=== PATIENT | male | born 1980 | race Caucasian/White ===

== ENCOUNTER → 2023-07-02 12:36 | Outpatient (CLI) | payer OTHER, SELFPAY ==
--- NOTE | 2023-07-02 | DI.MRI.S_ITS ---
PROCEDURE: MR SHOULDER LT W CON INDICATIONS: SHOULDER PAIN TECHNIQUE: After the administration of 12 mL of dilute intra-articular Gadolinium contrast, oblique coronal T1 and T2 spin echo with fat saturation, oblique sagittal T1 spin echo with and without fat saturation, oblique sagittal T2 fast spin echo with fat saturation, axial T1 spin echo with fat saturation through the shoulder. COMPARISON: None. FINDINGS: Image quality: Excellent. Rotator cuff: Low to moderate grade articular and bursal surface partial thickness tear involving distal supraspinatus at its insertion on the humeral head is seen extending to musculotendinous junction. Low-grade articular surface partial-thickness tear involving distal infraspinatus at its insertion on the humeral head. Low-grade intrasubstance partial-thickness tear involving subscapularis is seen. No full-thickness rotator cuff tendon rupture. Mild supraspinatus muscle atrophy is seen on sagittal images. Bones and bursae: No bone marrow contusions or fractures. Ixzz-ec-[id number] acromioclavicular joint osteoarthritic changes are seen with joint space narrowing and small downward osteophyte formation depressing the musculotendinous junction of supraspinatus. The acromion demonstrates conventional anatomy, without an os acromiale. Capsule and soft tissues: There is fraying of posterior superior labrum with T2 hyperintense signal and contrast extension at 11 to 12 o'clock position suggestive of subtle posterior superior labral tear. The glenohumeral ligaments appear intact. The long head of the biceps tendon demonstrates normal location and morphology. The rotator interval appears normal, without fibrosis. The coracohumeral ligament is of normal thickness. No intra-articular bodies. IMPRESSION: 1. Low to moderate grade articular and bursal surface partial thickness tear involving distal supraspinatus extending to musculotendinous junction. Low-grade articular surface partial-thickness tear involving distal infraspinatus. Low-grade intrasubstance partial-thickness tear involving subscapularis. No full-thickness rotator cuff tendon rupture. Mild supraspinatus muscle atrophy. 2. [id number] acromioclavicular joint osteoarthritis. No marrow edema. No fracture or dislocation. No gross intra-articular loose bodies. 3. Finding is concerning for subtle posterior superior labral tear at 11 to 12 o'clock position. Dictated by: Raulito Nicholas M.D. on 07/02/2023 at 16:28 Approved by: Raulito Nicholas M.D. on 07/02/2023 at 16:31
--- NOTE | 2023-07-02 | DI.RAD.S_ITS ---
PROCEDURE: FL SHOULDER INJECTION MR/CT LT INDICATIONS: SHOULDER PAIN COMPARISON: None. TECHNIQUE: The indications, alternatives, benefits, risks, and complications of the procedure were explained to the patient. Written informed consent was obtained and placed in the chart. The shoulder was examined fluoroscopically and a site for needle placement chosen for entry into the glenohumeral joint from an anterior approach. The skin was prepped and draped in a sterile fashion, and 1% lidocaine infiltrated from skin down to joint capsule. A spinal needle was inserted into the glenohumeral joint, and a small amount of iodinated contrast media injected to confirm intra-articular placement of the needle tip. This was followed by approximately 12 mL dilute solution of a gadolinium containing MR contrast agent. The needle was removed and a dressing was applied. The patient was given postprocedural instructions and sent to the MR suite for MR imaging. FINDINGS: A single fluoroscopic spot image demonstrates intra-articular location of injected iodinated contrast. IMPRESSION: Successful fluoroscopically guided administration of dilute Gadolinium solution into the shoulder joint for MR arthrogram. Dictated by: Messi Sherman M.D. on 07/05/2023 at 12:32 Approved by: Messi Sherman M.D. on 07/05/2023 at 12:32
[2023-07-02] MEDS: LIDOCAINE 1% 20 ML INJ (13:53)
[2023-07-02] MEDS: SODIUM CHLORIDE 0.9 % 20 ML VIAL IV (13:54)
== END ==
LOC: RAD 12:38
DX: M75.112 Incomplete rotator cuff tear or rupture of left shoulder, not specified as traumatic (principal); M19.012 Primary osteoarthritis, left shoulder; M25.519 Pain in unspecified shoulder
CPT/HCPCS: 23350; 73222

== ENCOUNTER → 2024-05-15 10:48 | Outpatient (CLI) | payer OTHER, SELFPAY ==
--- NOTE | 2024-05-15 | DI.MRI.S_ITS ---
PROCEDURE: MR ANKLE LT W CON INDICATIONS: MULTIPLE OSSEOUS INTRA-ARTICULAR BODIES TECHNIQUE: After the administration of 5 mL of dilute intra-articular Gadolinium contrast into the tibiotalar joint, sagittal T1 spin echo with and without fat saturation, axial T1 fast spin echo with fat saturation and T2 fast spin echo with fat saturation, coronal T1 spin echo and T2 fast spin echo with fat saturation through the ankle. COMPARISON: [facility], [place], [place] ANKLE INJECTION MR/CT LT, 05/15/2024, 11:27. [facility] Outside Film, CR, XR ANKLE 3+ VIEWS LEFT, 05/05/2024, 10:01. FINDINGS: Image quality: Excellent Tendons: Marked tenosynovitis of the posterior tibialis, at the level of the tibial plafond and. Mild tenosynovitis of the flexor digitorum longus. Marked tenosynovitis of the flexor hallucis longus, at the level of the distal tibia, and at the master knot of Reji. The extensor tendons, are unremarkable. Mild tenosynovitis of the peroneal longus, without tear. Mild tendinosis of the distal Achilles tendon, without tear. Ligaments: The anterior and the posterior tibiofibular ligament are intact. Sprain of the anterior talofibular ligament, without tear. The posterior talofibular ligament is intact. The calcaneofibular ligament is not well visualized. The deep portion of the deltoid ligament is unremarkable. Sinus tarsi: No fibrosis Plantar fascia cold unremarkable Muscles: Normal in signal Bones: Mild subchondral marrow edema in the medial talus dome, measuring approximately 7 mm with mild articular surface irregularity, likely representing an osteochondral lesion. No acute fracture. Small dorsal osteophyte of the talus neck. Intra-articular contrast is not seen at the tibiotalar joint. No definitive intra-articular body. IMPRESSION: 1. Marked tenosynovitis of the posterior tibialis, and the flexor hallucis longus. 2. Mild tendinosis of distal Achilles tendon, without tear. 3. Sprain of the anterior talofibular ligament. 4. 7 mm mild subchondral marrow edema in the medial talus dome, which may represent osteochondral lesion. 5. No definite intra-articular body. Dictated by: Joy Shane M.D. on 05/15/2024 at 13:37 Approved by: Joy Shane M.D. on 05/15/2024 at 13:51
--- NOTE | 2024-05-15 | DI.RAD.S_ITS ---
PROCEDURE: FL ANKLE INJECTION MR/CT LT INDICATIONS: MULTIPLE OSSEOUS INTRA-ARTICULAR BODIES COMPARISON: None. TECHNIQUE: Informed consent was obtained and the injection site was marked with ink. The patient, the procedure, and the site were confirmed during a pre-procedure huddle. Using sterile technique and fluoroscopic guidance, a 25 gauge needle was advanced through the skin into the left ankle joint utilizing a lateral approach. Following intra-articular injection with 6 cc of a dilute gadolinium mixture (1:200 gadolinium diluted in equal parts 1% lidocaine and iodinated contrast) into the joint, the needle was removed, and hemostasis was obtained with direct pressure. There were no complications. A insurance account representative image with intra-articular contrast was obtained and archived. FINDINGS: There were no arthrographic abnormalities; a normal distribution of contrast in the joint was observed. IMPRESSION: Technically successful left ankle arthrogram. The patient then had MR imaging. Please refer to the separate report for MRI findings. Dictated by: Sarabjit Duarte M.D. on 05/15/2024 at 14:40 Approved by: Sarabjit Duarte M.D. on 05/15/2024 at 14:42
[2024-05-15] MEDS: LIDOCAINE 1% 20 ML INJ (11:45)
== END ==
PROVIDERS: Referring Provider Preventive Medicine Aerospace Medicine; Visit Provider Preventive Medicine Aerospace Medicine
DX: S93.492A Sprain of other ligament of left ankle, initial encounter (principal); M65.972 Unspecified synovitis and tenosynovitis, left ankle and foot; M25.572 Pain in left ankle and joints of left foot
CPT/HCPCS: 27648; 73615; 73722; A9579

== ENCOUNTER → 2025-03-04 13:23 | Outpatient (CLI) | payer OTHER, SELFPAY ==
--- NOTE | 2025-03-04 13:24 | DI.US.S_ITS ---
PROCEDURE: US SOFT TISSUE HEAD AND NECK INDICATIONS: Localized swelling, mass and lump TECHNIQUE: Real-time scanning was performed of the neck region of interest, with image documentation. COMPARISON: None. FINDINGS: At the area of clinical concern, there is a superficial nonvascular ovoid nodule seen measuring 2.3 x 0.5 x 1.8 cm. This is seen adjacent to the right submandibular gland, but not associated with it. IMPRESSION: 2.3 cm nodule seen at the area of clinical concern within the subcutaneous fat. This may represent a lipoma. Differential diagnosis also includes a lymph node. If it would be helpful for clinical management decision making in this patient with this given history, please consider a dedicated CT of the neck with IV contrast for further evaluation. Dictated by: Ray Cramer M.D. on 03/04/2025 at 13:44 Approved by: Ray Cramer M.D. on 03/04/2025 at 13:45
== END ==
LOC: US 13:24
PROVIDERS: Referring Provider Student in an Organized Health Care Education/Training Program; Visit Provider Student in an Organized Health Care Education/Training Program
DX: R22.1 Localized swelling, mass and lump, neck (principal)
CPT/HCPCS: 76536